=== PATIENT | female | born 1975 | race African-American/Black ===

== ENCOUNTER 2017-03-05 06:10 | Day surgery (SDC) | payer MEDICARE, MEDICAID ==
[~2017-03-05] VITALS: Ht 175.3 cm; Wt 82.6 kg
[~2017-03-05 06:10] MED LIST: CARV25TA47 PO; CINA30 PO; CLON0.3T PO; GLIM2TAB2 PO; IBUP-1509 PO; LINA5TAB PO; SIMV20TA6 PO
[2017-03-05 07:00] LABS: HEMOGLOBIN. 9.9 g/dL (12.0-16.0); MEAN CORPUSCULAR HEMOGLOBIN 23.9 pg (28.0-32.0); MEAN CORPUSCULAR VOLUME 74.6 fL (81.0-99.0); MEAN PLATELET VOLUME 8.9 fl (7.4-10.4); PLATELET 181 x1000/uL (130-400); RED BLOOD CELL COUNT 4.16 mill/uL (4.2-5.4); RED CELL DISTRIBUTION WIDTH 16.6 % (11.6-14.6)
[2017-03-05 07:12] LABS: HCG SCREEN NEGATIVE
[2017-03-05] MEDS ORDERED: SODIUM CHLORIDE 0.9% 500 ML IV ONE (07:30)
[2017-03-05] MEDS ORDERED: BUPIVACAINE HCL/PF 0.5% (5MG/ML) 10ML ONE (08:26)
[2017-03-05] MEDS ORDERED: SKIN ADHESIVE 0.7 GM EA TOP ONE (08:26)
[2017-03-05 08:37] LABS: PLATELET ESTIMATE NORMAL
[2017-03-05] MEDS ORDERED: HYDROCODONE/ACETAMINOPHEN 5/325MG TABLET PO PRN (10:13)
[2017-03-05] MEDS ORDERED: HYDROMORPHONE HCL/PF 2MG/ML CPJ IV PRN (10:15)
[2017-03-05 10:39] VITALS: BP 157/91
[2017-03-05] MEDS ORDERED: PROPOFOL 200MG/20ML VIAL IV ONE (11:48)
== END 2017-03-05 11:30 | disposition home or self-care (01) ==
LOC: OR 06:10
PROVIDERS: ATTEND Surgery
DX: L72.0 Epidermal cyst (principal); E11.319 Type 2 diabetes mellitus with unspecified diabetic retinopathy without macular edema; D64.9 Anemia, unspecified; I12.0 Hypertensive chronic kidney disease with stage 5 chronic kidney disease or end stage renal disease; E11.22 Type 2 diabetes mellitus with diabetic chronic kidney disease; N18.6 End stage renal disease; Z99.2 Dependence on renal dialysis
CPT/HCPCS: 11404; 12032; 36415; 80048; 82962; 84703; 85025; 88304; G0168; J3490; J7040; J2704

== ENCOUNTER 2019-10-24 05:29 | Inpatient (IN) | payer MEDICARE, MEDICAID ==
[~2019-10-24] VITALS: Ht 175.3 cm; Wt 86.2 kg
[~2019-10-24 05:29] MED LIST changes: -GLIM2TAB2 PO; +GLIM2TAB30 PO; -IBUP-1509 PO; +IBUP-2028 PO; +SIMV-43 PO; -SIMV20TA6 PO
[2019-10-24 06:57] LABS: EOSINOPHILS % 1.1 % (0.0-5.0); LYMPHOCYTES % 17.5 % (20.0-50.0); MEAN CORPUSCULAR HEMOGLOBIN 23.9 pg (28.0-32.0); MEAN CORPUSCULAR VOLUME 73.8 fL (81.0-99.0); MEAN PLATELET VOLUME 8.9 fl (7.4-10.4); MONOCYTES % 3.9 % (2.0-8.0); NEUTROPHILS % 76.5 % (40.0-76.0); PLATELET 177 x1000/uL (130-400); RED BLOOD CELL COUNT 5.02 mill/uL (4.2-5.4); RED CELL DISTRIBUTION WIDTH 17.5 % (11.6-14.6)
[2019-10-24 07:03] LABS: CHLORIDE 96 mEq/L (98-107)
[2019-10-24 07:04] LABS: PROTHROMBIN TIME 10.8 sec (9.6-11.0)
[2019-10-24] MEDS ORDERED: FUROSEMIDE 100MG/10ML VIAL IV STA (07:24)
[2019-10-24] MEDS ORDERED: INSULIN REGULAR (HUMULIN R) 300UNITS/3ML IV ONE (07:30)
[2019-10-24] MEDS ORDERED: DEXTROSE 50% WATER 50ML SYRINGE IV ONE (07:30)
[2019-10-24] MEDS ORDERED: SODIUM BICARBONATE 8.4% 1 MEQ/ML 50ML SYR IV ONE (07:30)
[2019-10-24] MEDS ORDERED: ALBUTEROL (0.083%) 2.5MG/3ML NEB HHN ONE (07:30)
[2019-10-24] MEDS ORDERED: CALCIUM CHLORIDE 1GM/10ML SYR IV ONE (07:30)
[2019-10-24 07:42] LABS: PLATELET ESTIMATE NORMAL
[2019-10-24] MEDS ORDERED: ONDANSETRON HCL 4MG/2ML INJ IV PRN (11:30)
[2019-10-24] MEDS ORDERED: CLONIDINE 0.1MG TABLET PO PRN (11:30)
[2019-10-24] MEDS ORDERED: DOCUSATE SODIUM 100MG CAPSULE PO PRN (11:30)
[2019-10-24] MEDS ORDERED: ACETAMINOPHEN 325MG TABLET PO PRN ×2 (11:30→12:30)
[2019-10-24] MEDS ORDERED: HYDROCODONE/ACETAMINOPHEN 5/325MG TABLET PO PRN (11:30)
[2019-10-24] MEDS: CARVEDILOL 12.5MG TABLET PO SCH ×2 (11:45→21:45)
[2019-10-24] MEDS: ENOXAPARIN 30MG/0.3ML SYR SUBCUT SCH (12:00)
[2019-10-24] MEDS ORDERED: HYDRALAZINE 20MG/ML VIAL IV PRN (12:30)
[2019-10-24] MEDS ORDERED: DEXTROSE 50% WATER 50ML SYRINGE IV PRN (12:30)
[2019-10-24] MEDS: INSULIN LISPRO 100 UNITS/ML SUBCUT SCH ×5 (12:43→21:00)
[2019-10-24] MEDS: BLOOD SUGAR DIAGNOSTIC STRIP TEST SCH ×3 (12:43→20:57)
[2019-10-24] MEDS: SEVELAMER CARBONATE 800 MG TABLET PO SCH ×2 (13:10→18:09)
[2019-10-24] MEDS: CLONIDINE 0.3MG TABLET PO SCH ×2 (14:00→21:45)
[2019-10-24 15:40] VITALS: BP 113/58
[2019-10-24 16:00] VITALS: BP 118/67
[2019-10-24] MEDS: FOLIC ACID/VITAMIN B COMP W-C TABLET PO SCH (18:08)
[2019-10-24] MEDS: CINACALCET HCL 30MG TABLET PO SCH (18:09)
[2019-10-24] MEDS: LINAGLIPTIN 5MG TABLET PO SCH (18:09)
[2019-10-24 20:00] VITALS: BP 159/75
[2019-10-24] MEDS: ATORVASTATIN CALCIUM 40MG TABLET PO SCH (21:45)
[2019-10-25] VITALS: BP 141/70
[2019-10-25 04:00] VITALS: BP 134/69
[2019-10-25] MEDS: BLOOD SUGAR DIAGNOSTIC STRIP TEST SCH ×4 (05:42→22:02)
[2019-10-25] MEDS: CLONIDINE 0.3MG TABLET PO SCH ×3 (05:44→22:00)
[2019-10-25] MEDS: INSULIN LISPRO 100 UNITS/ML SUBCUT SCH ×4 (05:46→22:04)
[2019-10-25 06:57] LABS: BASOPHILS % 1.5 % (0.0-2.0); EOSINOPHILS % 8.1 % (0.0-5.0); HEMATOCRIT. 36.5 % (36.0-48.0); HEMOGLOBIN. 11.9 g/dL (12.0-16.0); MEAN CORPUSCULAR VOLUME 73.9 fL (81.0-99.0); MEAN PLATELET VOLUME 8.8 fl (7.4-10.4); MONOCYTES % 13.3 % (2.0-8.0); NEUTROPHILS % 43.1 % (40.0-76.0); PLATELET 158 x1000/uL (130-400); RED BLOOD CELL COUNT 4.93 mill/uL (4.2-5.4); RED CELL DISTRIBUTION WIDTH 17.5 % (11.6-14.6)
[2019-10-25 07:06] LABS: CHLORIDE 96 mEq/L (98-107)
[2019-10-25 07:14] LABS: HDL CHOLESTEROL 72 mg/dL (40-59); LDL CHOLESTEROL 110 mg/dL (5-100)
[2019-10-25 08:00] VITALS: BP 105/67
[2019-10-25] MEDS: LINAGLIPTIN 5MG TABLET PO SCH (08:34)
[2019-10-25] MEDS: FOLIC ACID/VITAMIN B COMP W-C TABLET PO SCH (08:34)
[2019-10-25] MEDS: SEVELAMER CARBONATE 800 MG TABLET PO SCH ×3 (08:34→18:25)
[2019-10-25] MEDS: CINACALCET HCL 30MG TABLET PO SCH (08:34)
[2019-10-25] MEDS: GLIMEPIRIDE 2MG TABLET PO SCH (08:34)
[2019-10-25] MEDS: CARVEDILOL 12.5MG TABLET PO SCH ×2 (08:35→22:01)
[2019-10-25] MEDS ORDERED: SODIUM BICARBONATE 8.4% 1 MEQ/ML 50ML SYR IV NR (10:04)
[2019-10-25] MEDS: INSULIN REGULAR (HUMULIN R) UD 100 UNITS/ML SYR IV NR ×2 (10:19→11:06)
[2019-10-25] MEDS: DEXTROSE 50% WATER 50ML SYRINGE IV NR ×2 (11:07→13:07)
[2019-10-25 11:48] VITALS: BP 138/76
[2019-10-25] MEDS: ENOXAPARIN 30MG/0.3ML SYR SUBCUT SCH (12:00)
[2019-10-25 16:00] VITALS: BP 123/68
[2019-10-25 20:00] VITALS: BP 138/71
[2019-10-25] MEDS: ATORVASTATIN CALCIUM 40MG TABLET PO SCH (22:01)
[2019-10-26] VITALS: BP 134/71
[2019-10-26 04:00] VITALS: BP 145/77
[2019-10-26 05:38] LABS: EOSINOPHILS % 7.4 % (0.0-5.0); HEMATOCRIT. 37.9 % (36.0-48.0); HEMOGLOBIN. 12.2 g/dL (12.0-16.0); LYMPHOCYTES % 28.5 % (20.0-50.0); MEAN CORPUSCULAR HEMOGLOBIN 23.9 pg (28.0-32.0); MEAN CORPUSCULAR VOLUME 74.4 fL (81.0-99.0); MEAN PLATELET VOLUME 8.9 fl (7.4-10.4); MONOCYTES % 11.2 % (2.0-8.0); NEUTROPHILS % 51.9 % (40.0-76.0); PLATELET 176 x1000/uL (130-400); RED CELL DISTRIBUTION WIDTH 17.3 % (11.6-14.6)
[2019-10-26 05:41] LABS: CHLORIDE 98 mEq/L (98-107)
[2019-10-26] MEDS: CLONIDINE 0.3MG TABLET PO SCH (06:00)
[2019-10-26] MEDS: BLOOD SUGAR DIAGNOSTIC STRIP TEST SCH ×2 (06:16→12:40)
[2019-10-26] MEDS: INSULIN LISPRO 100 UNITS/ML SUBCUT SCH ×2 (06:17→12:43)
[2019-10-26 08:00] VITALS: BP 117/63
[2019-10-26] MEDS: CARVEDILOL 12.5MG TABLET PO SCH (09:08)
[2019-10-26] MEDS: SEVELAMER CARBONATE 800 MG TABLET PO SCH ×2 (09:08→13:19)
[2019-10-26] MEDS: LINAGLIPTIN 5MG TABLET PO SCH (09:08)
[2019-10-26] MEDS: GLIMEPIRIDE 2MG TABLET PO SCH (09:08)
[2019-10-26] MEDS: FOLIC ACID/VITAMIN B COMP W-C TABLET PO SCH (09:08)
[2019-10-26] MEDS: CINACALCET HCL 30MG TABLET PO SCH (09:08)
[2019-10-26 12:00] VITALS: BP 121/65
[2019-10-26] MEDS: ENOXAPARIN 30MG/0.3ML SYR SUBCUT SCH (12:00)
[2019-10-26] MEDS ORDERED: LIP40 PO (12:18)
== END 2019-10-26 15:45 | disposition home or self-care (01) | DRG 637 ==
LOC: ER 05:29 → 7WST 08:18 → EDBEDREQ 08:21 → EDBEDREQTM 08:21 → ENRESERV 09:59
PROVIDERS: ADMIT Internal Medicine; ATTEND Internal Medicine
PROC: 5A1D70Z Performance of Urinary Filtration, Intermittent, Less than 6 Hours Per Day (ICD-10-PCS; principal; 2019-10-24)
PROC: 5A1D70Z Performance of Urinary Filtration, Intermittent, Less than 6 Hours Per Day (ICD-10-PCS; 2019-10-25)
DX: E11.65 Type 2 diabetes mellitus with hyperglycemia (principal); N18.6 End stage renal disease; I12.0 Hypertensive chronic kidney disease with stage 5 chronic kidney disease or end stage renal disease; I16.0 Hypertensive urgency; T38.3X5A Adverse effect of insulin and oral hypoglycemic [antidiabetic] drugs, initial encounter; E87.5 Hyperkalemia; E11.22 Type 2 diabetes mellitus with diabetic chronic kidney disease; E11.319 Type 2 diabetes mellitus with unspecified diabetic retinopathy without macular edema; E11.649 Type 2 diabetes mellitus with hypoglycemia without coma; E78.5 Hyperlipidemia, unspecified; D63.1 Anemia in chronic kidney disease; Z79.84 Long term (current) use of oral hypoglycemic drugs; Z79.899 Other long term (current) drug therapy; Y92.89 Other specified places as the place of occurrence of the external cause; Z99.2 Dependence on renal dialysis; Z98.891 History of uterine scar from previous surgery
CPT/HCPCS: 36415; 71045; 80053; 80061; 82962; 83036; 83735; 84132; 85025; 93005; 93970; 94644; 96374; 97116; 97162; 99291; J1815; J1940; J3490